=== PATIENT | male | born 1980 | race African-American/Black ===

== ENCOUNTER 2018-12-07 06:39 | Emergency (ER) | payer OTHER ==
[~2018-12-07] VITALS: Ht 185.4 cm; Wt 77.1 kg
[2018-12-07] MEDS ORDERED: ZANAFLEX4 MG PO (06:57)
[2018-12-07] MEDS ORDERED: NAPROSYN500 MG PO (06:58)
[2018-12-07 07:25] LABS: HEMATOCRIT 46.7 % (42.0-52.0); HEMOGLOBIN 15.6 gm/dL (14.0-18.0); MCH 30.3 pg (26.0-34.0); MCHC 33.5 g/dL (28.0-37.0); MCV 90.5 fL (80.0-100.0); PLATELET COUNT 320 thou/uL (150-400); RBC 5.16 mil/uL (4.50-6.00); RDW 14.4 % (10.5-14.5)
[2018-12-07 07:33] LABS: CALCIUM 8.7 mg/dL (8.5-10.1); POTASSIUM 3.8 mmol/L (3.5-5.1)
[2018-12-07 08:08] LABS: URINE BILIRUBIN NEGATIVE (Negative); URINE BLOOD NEGATIVE (Negative); URINE CLARITY CLEAR; URINE COLOR YELLOW; URINE GLUCOSE-RANDOM* NEGATIVE (Negative); URINE KETONES NEGATIVE (Negative); URINE LEUKOCYTES NEGATIVE (Negative); URINE NITRITE NEGATIVE (Negative); URINE PROTEIN (DIPSTICK) NEGATIVE (Negative); URINE SPECIFIC GRAVITY >= 1.030 (1.005-1.035)
[2018-12-07 08:42] LABS: ABSOLUTE NEUTROPHILS 3.2 thou/uL (1.4-8.2); PLATELET ESTIMATE NORMAL
[2018-12-07 09:40] VITALS: BP 114/78
== END 2018-12-07 09:40 | disposition home or self-care (01) ==
LOC: ER 06:39
PROVIDERS: Emergency Medicine
DX: M54.5 Low back pain (principal); R20.2 Paresthesia of skin; F17.210 Nicotine dependence, cigarettes, uncomplicated